=== PATIENT | male | born 1950 | race Caucasian/White ===

== ENCOUNTER 2018-08-17 05:28 | Day surgery (SDC) | payer MEDICARE, BC ==
[2018-08-09 10:55] LABS: BASOPHILS # (AUTO) 0.1 X10'3 (0-0.2); BASOPHILS % (AUTO) 0.9 % (0-1); EOSINOPHILS # (AUTO) 0.1 X10'3 (0-0.9); EOSINOPHILS % (AUTO) 1.4 % (0-6); LYMPHOCYTES # (AUTO) 1.9 X10'3 (1.1-4.8); LYMPHOCYTES % (AUTO) 33.4 % (21-51); MEAN CORPUSCULAR HEMOGLOBIN 29.6 PG (27.0-31.0); MEAN CORPUSCULAR HGB CONC 33.9 g/dL (33.0-36.5); MEAN CORPUSCULAR VOLUME 87.5 FL (78-98); MEAN PLATELET VOLUME 7.1 FL (7.4-10.4); MONOCYTES # (AUTO) 0.4 X10'3 (0-0.9); MONOCYTES % (AUTO) 8.1 % (2-12); NEUTROPHILS # (AUTO) 3.1 X10'3 (1.8-7.7); NEUTROPHILS % (AUTO) 56.2 % (42-75); PRE OP HEMATOCRIT 41.7 % (42.0-52.0); PRE OP HEMOGLOBIN 14.1 g/dL (14.0-17.9); PRE OP PLATELET COUNT 339 X10'3 (140-440); RED BLOOD COUNT 4.76 X10'6 (4.70-6.10)
[2018-08-09 11:14] LABS: ALBUMIN/GLOBULIN RATIO 1.3 (1.1-1.5); ALKALINE PHOSPHATASE 79 IU/L (46-116); BLOOD UREA NITROGEN 19 MG/DL (7-18); BUN/CREATININE RATIO 18.3 (5.4-32.0); CALCIUM 8.8 MG/DL (8.5-10.1); CHLORIDE 104 MMOL/L (99-107); CREATININE 1.04 MG/DL (0.60-1.10); PRE OP ALT 36 U/L (30-65); PRE OP ANION GAP 5 (8-16); PRE OP AST 26 U/L (10-37); PRE OP BILIRUB, TOTAL 0.5 MG/DL (0.0-1.0); PRE OP GLUCOSE 112 MG/DL (70-104); PRE OP POTASSIUM 4.3 MMOL/L (3.4-5.1); PRE OP SODIUM 138 MMOL/L (135-145); TOTAL CARBON DIOXIDE 29.4 MMOL/L (24-32); TOTAL PROTEIN 7.2 G/DL (6.4-8.2); eGFR 72 ML/MIN
[2018-08-17] VITALS (7 sets, daily range): BP systolic 117–146; BP diastolic 69–86
[~2018-08-17] VITALS: Ht 188 cm; Wt 96.2 kg
[~2018-08-17 05:28] MED LIST: ASCO500C15 PO; CALC-854 PO; CARI250T PO; CELE-193 PO; DIPH25CA83 PO; DULO-31 PO; ESOM40CA49 PO; FISH12002 PO; FOLI400T4 PO; GARL1000 PO; GINK120C PO; GINS100C5 PO; GLUC100017 PO; HYDR-4353 PO; LEVO175T2 PO; MELA3TAB PO; MILK500C PO; MULT-1074 PO; OLAN2.5T3 PO; SAW450CA7 PO; SIMV80TA2 PO; ST JOHNS WORT PO; VALE100C PO; VITA400T8 PO; ringers solution, lacted 1,000 ML IV SCH
[2018-08-17] MEDS ORDERED: famotidine 20mg tablet PO ONE (05:30)
[2018-08-17] MEDS ORDERED: cefazolin/dext.iso 2gm/100 ML IV ONE (05:30)
[2018-08-17] MEDS ORDERED: LIDOcaine 1% (10mg/ml) 2ml vial ONE (05:47)
[2018-08-17] MEDS ORDERED: LIDOcaine 1% 30ml preserv. free vial ONE (06:45)
[2018-08-17] MEDS ORDERED: BUPIVAcaine/PF 2.5 mg/ml (0.25%) 30ml vial ONE (06:45)
[2018-08-17] MEDS ORDERED: neomy sulf/bacitrac zn/polymixin b oint 14.2 gm tube TP ONE (07:09)
[2018-08-17] MEDS ORDERED: midazolam 2 mg/2 ml injection ONE (07:18)
[2018-08-17] MEDS ORDERED: fentaNYL /PF 50mcg/ml 5ml ampule ONE (07:18)
[2018-08-17] MEDS ORDERED: propofol inj 20 ML IV ONE (07:18)
[2018-08-17] MEDS ORDERED: rocuronium 10mg/ml inj IV ONE (07:18)
[2018-08-17] MEDS ORDERED: ringers solution, lacted 1,000 ML IV SCH (08:04)
[2018-08-17] MEDS ORDERED: morphine 4 MG/ML inj SYRINge IV PRN ×2 (08:05)
[2018-08-17] MEDS ORDERED: proCHLORperazine 10 MG/2 ml inj IV PRN (08:05)
[2018-08-17] MEDS ORDERED: ondansetron/PF 4mg/2ml inj IV PRN (08:05)
[2018-08-17] MEDS ORDERED: meperidine/PF 25mg/ml syringe IV PRN ×3 (08:05)
[2018-08-17] MEDS ORDERED: dexamethasone sod phosphate 4mg/ml inj. ONE (09:14)
[2018-08-17] MEDS ORDERED: ondansetron/PF 4mg/2ml inj ONE (09:14)
--- NOTE | 2018-08-17 09:50 | NUR ---
Received from OR via marifer, accompanied by Anesthesiologist EARL and report given by Anesthesiolgist. Pt with right hand 20G IV LR at 100/hr, lap sites x3 with bandaids CDI, Mask to 10L with purple oral airway to assist. PT sleepy not yet responsive to verbal stimuli and cannot follow commands. Will continue to monitor closely. Dr Bee at bedside states okay to straight cath later in recovery process if patient unable to void then can go home.
--- NOTE | 2018-08-17 10:05 | NUR ---
Pt's oral airway removed, pt responding to questions but still sleepy. Sats greater than 96% on 10L O2 mask.
[2018-08-17] MEDS ORDERED: HYDROcodone/acetaminophen 10/325mg tab PO ONE (11:30)
--- NOTE | 2018-08-17 11:50 | NUR ---
Pt left floor by wheelchair with family and staff. IV DC'd, patient dressed in own clothing and all belongings with patient. SO and pt state understanding of all DC information and [facility]CO script given to patient. Patient has voided, eaten, drank fluids and ambulated.
== END 2018-08-17 11:50 | disposition home or self-care (01) ==
LOC: PAS 05:28
PROVIDERS: ATTEND Surgery
DX: K40.20 Bilateral inguinal hernia, without obstruction or gangrene, not specified as recurrent (principal); K42.0 Umbilical hernia with obstruction, without gangrene; M19.90 Unspecified osteoarthritis, unspecified site; F32.9 Major depressive disorder, single episode, unspecified; K21.9 Gastro-esophageal reflux disease without esophagitis; E78.5 Hyperlipidemia, unspecified; E03.9 Hypothyroidism, unspecified; Z88.6 Allergy status to analgesic agent; Z91.013 Allergy to seafood; Z79.899 Other long term (current) drug therapy; G89.29 Other chronic pain; M54.9 Dorsalgia, unspecified; Z96.611 Presence of right artificial shoulder joint; Z98.890 Other specified postprocedural states; Z87.891 Personal history of nicotine dependence
CPT/HCPCS: 36415; 49650; 49653; 80053; 82948; 84443; 85025; 93005; C1781; J1100; J2001; J2250; J2405; J2704; J3010; J3490; J7120; A7000